=== PATIENT | male | born 2000 ===

== ENCOUNTER → 2021-07-05 10:55 | Outpatient (CLI) | payer OTHER, MEDICAID, SELFPAY ==
[2021-07-05 11:54] LABS: Influenza A - CEPHEID Flu A NEGATIVE (NEGATIVE); Influenza B - CEPHEID Flu B NEGATIVE (NEGATIVE)
[2021-07-05 12:04] LABS: COVID19 -Nasal RAPID POSITIVE (Negative)
== END ==
PROVIDERS: Visit Provider Nurse Practitioner
DX: U07.1 COVID-19 (principal); Z20.822 Contact with and (suspected) exposure to COVID-19; R05 Cough; R09.81 Nasal congestion
CPT/HCPCS: 87502; 87635